=== PATIENT | male | born 1960 | race Caucasian/White ===

== ENCOUNTER 2016-06-03 10:02 | Emergency (ER) | payer SELFPAY ==
[~2016-06-03] VITALS: Ht 182.9 cm; Wt 140.0 kg
[2016-06-03 10:04] VITALS: BP 145/93; PULSE 71; RESP 14; TEMP 98.2; O2SAT 98
[2016-06-03] MEDS ORDERED: PROPARACAINE HCL 0.5% OPHT SOLN 15 ML BTL LEFT EYE ONE (10:15)
--- NOTE | 2016-06-03 10:18 | PD ---
HPI Chief Complaint: Eye Problems/Injury Time Seen by Provider: 10:15 Travel History International Travel<30 days: No Contact w/Intl Traveler<30days: No Traveled to known affect area: No History of Present Illness HPI 56-year-old male presents to the emergency Department with complaint of a sensation of feeling like there is something in his left eye, at the lateral aspect, for the last couple days. He was driving with the window down the other day and thinks something may have blew in his eye. Denies eyelid edema. He denies eye pain but reports irritation. Reports clear drainage from the lateral aspect of his eye. Denies photophobia. Denies change in vision. Denies fever, chills, nausea, vomiting. Has tried flushing his eye out with no resolution of symptoms. Has used Visine with good relief of symptoms. History of high blood pressure, diabetes type 2, COPD. Allergies to lisinopril. No other modifying factors or associated signs and symptoms. PFSH Past Medical History COPD: Yes Diabetes: Yes Hypertension: Yes Social History Tobacco Use: Yes Allergies-Medications (Allergen,Severity, Reaction): Coded Allergies: Lisinopril (Verified Allergy, Severe, COUGH, 06/03/16) Reported Meds & Prescriptions Reported Meds & Active Scripts Active Erythromycin Opth Oint 5 Mg/Gm Oint 1 Applic LEFT EYE QID 7 Days Review of Systems Except as stated in HPI: all other systems reviewed are Neg Physical Exam Narrative GENERAL: Well-nourished, well-developed patient, in no acute distress; afebrile , nontoxic-appearing SKIN: Warm and dry. HEAD: Atraumatic. Normocephalic. EYES: Pupils equal and round at 4 mm with brisk reaction. PERRLA. EOMI. Left lid eversion with no foreign body noted. Left eye with scleral erythema to the lateral aspect and without lid edema. No orbital tenderness, erythema or cellulitis. Left eye without photophobia. No consensual photophobia. No scleral icterus. No drainage noted. Jurado lamp exam normal. ENT: Mucosa pink and moist. Airway patent. NECK: Trachea midline. CARDIOVASCULAR: Regular rate. RESPIRATORY: No accessory muscle use. GASTROINTESTINAL: Obese. NEUROLOGICAL: Awake and alert. Oriented 3. No obvious cranial nerve deficits. Motor grossly within normal limits. Normal speech. PSYCHIATRIC: Appropriate mood and affect; insight and judgment normal. Data Data Last Documented VS Vital Signs Date Time Temp Pulse Resp B/P Pulse Ox O2 Delivery O2 Flow Rate FiO2 06/03/16 10:04 98.2 71 14 145/93 98 Orders Proparacaine 0.5% Opth Soln (Alcaine 0.5 (06/03/16 10:15) [facility] Medical Decision Making Medical Screen Exam Complete: Yes Emergency Medical Condition: Yes Medical Record Reviewed: Yes Differential Diagnosis Allergic conjunctivitis, stye, hordeolum, corneal abrasion, irritation of the cornea Narrative Course 56-year-old male physical exam consistent with irritation of the left eye. Findings may be consistent with an allergic conjunctivitis. Jurado lamp exam is normal with no evidence of foreign body or corneal abrasion. I will prescribe erythromycin ointment and have the patient follow up outpatient with shaker flatwork. Patient agrees with treatment plan and verbalized understanding and agreement. Instructed patient to follow up with ophthalmology. Erythromycin eye ointment prescribed for home. Patient is medically cleared and stable for discharge. Discussed reasons to return to the emergency department. Instructed patient to follow up with primary care provider. Patient agrees with treatment plan. The patients vital signs are stable and the patient is stable for outpatient follow-up and treatment. Patient discharged home, stable and in no acute distress. Diagnosis Primary Impression: Irritation of left eye Referrals: [facility] Primary Care Physician Patient Instructions: Conjunctivitis (ED), General Instructions Departure Forms: Tests/Procedures, Work Release Enter return to work date: Jun 04, 2016 Additional Instructions: Ibuprofen or Tylenol as directed and as needed to reduce pain Do not patch the eye Do not rub the eye Refrigerated eye drops as needed to reduce pain Cool compresses to the eye as needed to reduce pain Follow-up with ophthalmology Primary care provider Return to the emergency department immediately Med/Other Pt SpecificInfo: Prescription(s) given Scripts Erythromycin Opth Oint 5 Mg/Gm Oint1 Applic LEFT EYE QID 7 Days Ref 0 Prov:Melonie De La Fuente 06/03/16 Disposition: 01 DISCHARGE HOME Condition: Stable Melonie De La Fuente Jun 03, 2016 10:18
[2016-06-03] MEDS ORDERED: ERYTOIN10 LEFT EYE (10:31)
== END 2016-06-03 10:59 | disposition home or self-care (01) ==
LOC: NEPB 10:02
DX: H57.8 Other specified disorders of eye and adnexa (principal); J44.9 Chronic obstructive pulmonary disease, unspecified; E11.9 Type 2 diabetes mellitus without complications; I10 Essential (primary) hypertension
CPT/HCPCS: 99283

== ENCOUNTER 2016-06-08 07:33 | Emergency (ER) | payer SELFPAY ==
[~2016-06-08] VITALS: Ht 182.9 cm; Wt 140.0 kg
[~2016-06-08 07:33] MED LIST: ERYTOIN10 LEFT EYE
[2016-06-08 07:37] VITALS: BP 128/95; PULSE 91; RESP 16; TEMP 98.8; O2SAT 94
[2016-06-08] MEDS ORDERED: LOSA50TA2 PO (07:46)
[2016-06-08] MEDS ORDERED: METF500T PO (07:46)
[2016-06-08] MEDS ORDERED: CHOL MED (07:46)
--- NOTE | 2016-06-08 07:54 | PD ---
HPI Chief Complaint: Skin Problem Time Seen by Provider: 07:40 Travel History International Travel<30 days: No Contact w/Intl Traveler<30days: No Traveled to known affect area: No History of Present Illness HPI 56-year-old male with history of hypertension, diabetes, hypercholesterolemia, skin tags, here for evaluation of painful skin tag to right upper back. Patient reports that he has had several skin tags in the past which have been cut off by his primary care physician. He has no known history of skin cancers. Pain is moderate, worse with movement and palpation. No fevers or chills. PFSH Past Medical History High Cholesterol: Yes COPD: Yes Diabetes: Yes Patient Takes Glucophage: Yes Diminished Hearing: No Hypertension: Yes Tetanus Vaccination: Unknown Past Surgical History Appendectomy: Yes Social History Alcohol Use: No Tobacco Use: Yes Substance Use: No Allergies-Medications (Allergen,Severity, Reaction): Coded Allergies: Lisinopril (Verified Allergy, Severe, COUGH, 06/08/16) Reported Meds & Prescriptions Reported Meds & Active Scripts Active Reported [Chol Med] Losartan-Hydrochlorothiazide 50-12.5 Mg Tab 1 Tab PO DAILY Metformin (Metformin HCl) 500 Mg Tab 500 Mg PO BIDPC With meals Review of Systems Except as stated in HPI: all other systems reviewed are Neg Physical Exam Narrative GENERAL: Well-developed, well-nourished, comfortable, no acute distress. SKIN: Warm and dry. Right upper back with a pedunculated approximately 4 mm lesion that is the color of his skin with a thin stump. No surrounding warmth or erythema, no fluctuance or induration. No ulcerations. No dark coloration. CARDIOVASCULAR: Regular rate and rhythm. RESPIRATORY: No distress PSYCHIATRIC: Appropriate mood and affect; insight and judgment normal. Data Data Last Documented VS Vital Signs Date Time Temp Pulse Resp B/P Pulse Ox O2 Delivery O2 Flow Rate FiO2 06/08/16 07:37 98.8 91 16 128/95 94 MDM Medical Decision Making Medical Screen Exam Complete: Yes Emergency Medical Condition: Yes Differential Diagnosis Skin tags, skin cancer less likely Narrative Course This is a 56-year-old male who is here for an irritated skin tag to his right upper back. Area is not infected. It does not seem to be suspicious of cancerous lesion. The patient has no history of skin cancers. He has history of several skin tags which have been removed by his primary care physician. Patient is requesting that I remove this skin tag for him. Ethyl chloride applied, and after 3 twists, the lesion was removed. No active bleeding after removal. This was tolerated well. No complications. At this point patient is stable for discharge home with outpatient follow-up with his primary care physician when he returns to [place]. I stressed the importance of follow -up with a spring former for skin check. He was informed on when to return to the emergency department. He verbalizes understanding and agreement with plan. Procedures Procedure Narrative Skin tag removal: Ethyl chloride applied, and after 3 twists, the lesion was removed. No active bleeding after removal. This was tolerated well. No complications. Diagnosis Primary Impression: Skin tag Referrals: [employer] Facilitator call for appointment Patient Instructions: General Instructions Departure Forms: Tests/Procedures Additional Instructions: Follow-up with your primary care physician when he returns to [place]. Follow-up with a spring former for a skin check. Return to the emergency department for worsening symptoms or any other concerns. Disposition: 01 DISCHARGE HOME Condition: Stable Yaron Anderson MD Jun 08, 2016 07:54
== END 2016-06-08 08:05 | disposition home or self-care (01) ==
LOC: PHED 07:33
DX: L91.8 Other hypertrophic disorders of the skin (principal); I10 Essential (primary) hypertension; E78.00 Pure hypercholesterolemia, unspecified; E11.9 Type 2 diabetes mellitus without complications; J44.9 Chronic obstructive pulmonary disease, unspecified; Z72.0 Tobacco use
CPT/HCPCS: 11200